=== PATIENT | male | born 1940 | race Caucasian/White ===

== ENCOUNTER → 2023-05-23 | Outpatient (CLI) | payer MEDICARE ==
--- NOTE | 2023-05-23 10:41 | XR ---
EXAMINATION TYPE: XR lumbar spine 2 or 3V DATE OF EXAM: 05/23/2023 COMPARISON: None HISTORY: Neuropathy left leg TECHNIQUE: 3 view lumbar spine FINDINGS: There are 5 lumbar-type vertebral bodies. Pedicles are intact. Scoliosis is present with th e convexity to the left. Degenerative disc changes are present throughout the lumbar spine appears gr eatest at L5-S1 posteriorly at L4-5. Spondylosis is present. IMPRESSION: 1. Degenerative disc changes with narrowing of disc height L4-5 and L5-S1
== END | disposition home or self-care (01) ==
LOC: RADXRMAIN 09:32
PROVIDERS: ATTEND Internal Medicine Geriatric Medicine
DX: M51.37 Other intervertebral disc degeneration, lumbosacral region (principal); M51.27 Other intervertebral disc displacement, lumbosacral region; G62.9 Polyneuropathy, unspecified
CPT/HCPCS: 72100

== ENCOUNTER → 2023-06-05 | Outpatient (CLI) | payer MEDICARE ==
--- NOTE | 2023-06-07 09:51 | MR ---
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 IV Contrast: cc . (None if empty) FINDINGS: Alignment: The lumbar vertebral bodies have preserved heights with grade 1 anterolisthesis of L4 on L 5. Cord: The conus medullaris and the distal spinal cord appear unremarkable with regards to their signa l intensity and morphology. Bones/Discs: Multilevel disc degeneration changes with osteophyte formation, disc space narrowing, Sc hmorl's nodes, and facet joint arthropathy. Reactive inversion recovery signal seen throughout the lo wer spine most pronounced at the adjoining endplates of L3-L4 and L4-L5. Multilevel disc desiccation is present. T12-L1: No evidence of significant spinal canal stenosis or neural foraminal stenosis. L1-L2: No evidence of significant spinal canal stenosis or neural foraminal stenosis. L2-L3: Disc bulge and facet joint arthropathy result in moderate spinal canal and moderate bilateral neural foraminal stenosis. L3-L4: Disc bulge and facet joint arthropathy result in moderate to severe spinal canal and moderate to severe bilateral neural foraminal stenosis. L4-L5: Disc uncovering from grade 1 anterolisthesis and facet joint arthropathy with severe spinal ca nal stenosis and severe bilateral neural foraminal stenosis. L5-S1: The disc is rounded posterior morphology without significant spinal canal stenosis. Facet join t arthropathy with mild to moderate bilateral neural foraminal stenosis. No significant spinal canal or neural foraminal stenosis in the remainder of the visualized levels. Other findings: None. IMPRESSION: 1. 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 There ar e results in severe bilateral neural foraminal stenosis, right greater than left. Additional moderate to severe L3-L4 spinal canal stenosis. 2. Severe degeneration changes throughout the spine with moderate to severe facet joint arthropathy throughout the lower spine extending from L3 to L5. No neural foraminal stenosis worse at L3-L4 with moderate to severe bilateral, L4-5 with severe bilateral stenosis.
== END | disposition home or self-care (01) ==
LOC: RADMRIMAIN 17:20
PROVIDERS: ATTEND Internal Medicine Geriatric Medicine
DX: M47.816 Spondylosis without myelopathy or radiculopathy, lumbar region (principal); M51.36 Other intervertebral disc degeneration, lumbar region; M43.16 Spondylolisthesis, lumbar region; M99.73 Connective tissue and disc stenosis of intervertebral foramina of lumbar region
CPT/HCPCS: 72148

== ENCOUNTER 2023-07-05 22:07 | Emergency (ER) | payer MEDICARE ==
[2023-07-05 22:35] VITALS: RESP 16
--- NOTE | 2023-07-05 22:48 | ED ---
General Adult HPI - General Chief complaint: Recheck/Abnormal Lab/Rx Stated complaint: Open stitches in right wound Time Seen by Provider: 07/05/23 22:31 Source: patient, RN notes reviewed, old records reviewed Mode of arrival: ambulatory Limitations: no limitations - History of Present Illness Initial comments: 83-year-old male presenting for evaluation of laceration which occurred 4 days prior. Patient received suture at outside hospital, for total nylon sutures in the interspace between the third and fourth digit on his right hand. He was given prophylactic antibiotics which she has been taking. No erythema. He states he does tend to overdo it and believes he may have opened the laceration. - Related Data Allergies Allergy/AdvReac Type Severity Reaction Status Date / Time No Known Allergies Allergy Verified 07/05/23 22:14 Review of Systems ROS Statement: Those systems with pertinent positive or pertinent negative responses have been documented in the HPI. ROS Other: All systems not noted in ROS Statement are negative. Past Medical History Past Medical History: No Reported History History of Any Multi-Drug Resistant Organisms: None Reported Past Surgical History: Joint Replacement, Orthopedic Surgery Additional Past Surgical History / Comment(s): knee Past Psychological History: No Psychological Hx Reported Smoking Status: Former smoker Past Alcohol Use History: Rare Past Drug Use History: None Reported General Exam Limitations: no limitations General appearance: alert, in no apparent distress Head exam: Present: atraumatic, normocephalic Eye exam: Present: normal appearance Neck exam: Present: normal inspection Respiratory exam: Absent: respiratory distress Cardiovascular Exam: Present: regular rate, normal rhythm GI/Abdominal exam: Absent: distended Extremities exam: Present: other (Approximately 2 cm laceration without purulence or signs of infection, the central portion is healing by secondary intention.) Course Vital Signs 07/05/23 07/05/23 22:15 22:54 Temperature 97.6 F 97.8 F Pulse Rate 66 65 Respiratory 16 16 Rate Blood Pressure 149/89 147/85 O2 Sat by Pulse 98 98 Oximetry Procedures - Orthopedic Splinting/Casting Injury #1 Side: right Upper Extremity Injury Location: hand, finger Upper Extremity Immobilizer: volar splint Additional Comments: Immobilized for improved healing Medical Decision Making - Medical Decision Making Was pt. sent in by a medical professional or institution (, PA, MAILROOM MANAGER, urgent care, hospital, or [facility]...) When possible be specific @ -No Did you speak to anyone other than the patient for history (EMS, parent, family, police, friend...)? What history was obtained from this source @ -No Did you review nursing and triage notes (agree or disagree)? Why? @ -I reviewed and agree with nursing and triage notes Were old charts reviewed (outside hosp., previous admission, EMS record, old EKG, old radiological studies, urgent care reports/EKG's, [facility] records)? Report findings @ -No old charts were reviewed Differential Diagnosis laceration dehiscence, infection, wound evaluation. EKG interpreted by me (3pts min.). @ -As above X-rays interpreted by me (1pt min.). @ -None done CT interpreted by me (1pt min.). @ -None done U/S interpreted by me (1pt. min.). @ -None done What testing was considered but not performed or refused? (CT, X-rays, U/S, labs)? Why? @ -None What meds were considered but not given or refused? Why? @ -None Did you discuss the management of the patient with other professionals (professionals i.e. , PA, MAILROOM MANAGER, lab, RT, psych nurse, criminal justice social worker, credit authorizer, teacher, second officer, director of casework department)? Give summary @ -No Was smoking cessation discussed for >3mins.? @ -No Was critical care preformed (if so, how long)? @ -No Were there social determinants of health that impacted care today? How? (Homelessness, low income, unemployed, alcoholism, drug addiction, trans portation, low edu. Level, literacy, decrease access to med. care, [facility], rehab)? @ -No Was there de-escalation of care discussed even if they declined (Discuss DNR or withdrawal of care, Hospice)? DNR status @ -No What co-morbidities impacted this encounter? (DM, HTN, Smoking, COPD, CAD, Cancer, CVA, ARF, Chemo, Hep., AIDS, mental health diagnosis, sleep apnea, morbid obesity)? @ -None Was patient admitted / discharged? Hospital course, mention meds given and route, prescriptions, significant lab abnormalities, going to OR and other pertinent info. @ -The laceration is closed on the wound edges but has healing by secondary intention in the middle. There is 4 total nylon sutures. No signs of infection. Patient will continue antibiotics as prescribed. He will follow-up closely for reevaluation with primary care. Undiagnosed new problem with uncertain prognosis? @ -No Drug Therapy requiring intensive monitoring for toxicity (Heparin, Nitro, Insulin, Cardizem)? @ -No Were any procedures done? @ -Volar splint Diagnosis/symptom? @ -Laceration, appropriate healing Acute, or Chronic, or Acute on Chronic? @ -[Acute Uncomplicated (without systemic symptoms) or Complicated (systemic symptoms)? @ -Default Side effects of treatment? @ -No Exacerbation, Progression, or Severe Exacerbation? @ -No Poses a threat to life or bodily function? How? (Chest pain, [place], [place], pneumonia, PE, COPD, DKA, ARF, appy, cholecystitis, CVA, Diverticulitis, Homicidal, Suicidal, threat to staff... and all critical care pts) @ -No Disposition Clinical Impression: Laceration, Visit for wound check Disposition: HOME SELF-CARE Condition: Good Instructions (If sedation given, give patient instructions): Care For Your Stitches (ED), Laceration (ED) Additional Instructions: Please have sutures removed next or Saturday. Please wear splint when you are active. Please monitor for signs of infection and complete antibiotic dose as prescribed. Is patient prescribed a controlled substance at d/c from ED?: No Referrals: Gary Rodríguez MD [Primary Care Provider] - 1-2 days Time of Disposition: 22:47
[2023-07-05 23:16] VITALS: BP 147/85; PULSE 65; TEMP 97.8
== END 2023-07-05 23:08 | disposition home or self-care (01) ==
LOC: EC 22:07
DX: Z48.00 Encounter for change or removal of nonsurgical wound dressing (principal); S61.411A Laceration without foreign body of right hand, initial encounter; Z87.891 Personal history of nicotine dependence; X58.XXXA Exposure to other specified factors, initial encounter
CPT/HCPCS: 12001; 99283